=== PATIENT | male | born 1950 | race Caucasian/White ===

== ENCOUNTER 2017-03-28 12:16 | Emergency (ER) | payer OTHER, MEDICARE, BC ==
[2017-03-28 12:24] VITALS: BP 114/66
[2017-03-28] MEDS ORDERED: Diphtheria,Pertussis(Acell),Tetanus Vaccine 0.5 ML Syringe IM ONE (12:40)
--- NOTE | 2017-03-28 12:40 | EDM.PDOC ---
ED HPI GENERAL MEDICAL PROBLEM - General Chief Complaint: Upper Extremity Injury/Pain Stated Complaint: Swollen/Painful Left Hand Time Seen by Provider: 03/28/17 12:19 Source of Information: Reports: Patient History Limitations: Reports: No Limitations - History of Present Illness INITIAL COMMENTS - FREE TEXT/NARRATIVE: This patient is a 66 year old male that presents to the ER. Patient reports that a few days ago he injured his left hand at base of thumb with abrasion working outside. Patent then reports over the past few days he has been moving items and his left wrist began to hurt and swelling near the open wound area. Patent reports he has been treating with vaseline and antibiotic ointment. Patient denies ortiz, dizziness, n, v, d, f, cp, soa, abd pain, rashes. Patient denies history of bleeding in bowel issues. Wrist does not appear septic. No fluctulant. Duration: Day(s): (3) Location: Reports: Upper Extremity, Left Quality: Reports: Ache Severity: Mild Improves with: Reports: Immobilization Worsens with: Reports: Movement Associated Symptoms: Reports: No Other Symptoms. Denies: Diaphoresis, Fever/ Chills, Headaches, Malaise, Nausea/Vomiting, Shortness of Breath, Syncope Left Hand Pain Score (Numeric/FACES): 6 - Related Data Allergies Allergy/AdvReac Type Severity Reaction Status Date / Time No Known Allergies Allergy Verified 03/28/17 12:25 Home Meds: Home Meds Aspirin/Calcium Carbonate/Mag [Aspirin Buffered 325 mg Tab] 325 mg PO DAILY [History] Carvedilol 6.25 mg PO BID 03/28/17 [History] Lisinopril 10 mg PO DAILY 03/28/17 [History] Nitroglycerin 0.4 mg SL ASDIRECTED PRN 03/28/17 [History] atorvaSTATin [Lipitor] 40 mg PO DAILY 03/28/17 [History] traZODone 50 mg PO BEDTIME PRN 03/28/17 [History] Social & Family History - Tobacco Use Smoking Status *Q: Never Smoker - Caffeine Use Caffeine Use: Reports: None - Recreational Drug Use Recreational Drug Use: No Review of Systems - Review of Systems Review Of Systems: See Below Constitutional: Reports: No Symptoms Eyes: Reports: No Symptoms Ears: Reports: No Symptoms Nose: Reports: No Symptoms Mouth/Throat: Reports: No Symptoms Respiratory: Reports: No Symptoms Cardiovascular: Reports: No Symptoms GI/Abdominal: Reports: No Symptoms Genitourinary: Reports: No Symptoms Musculoskeletal: Reports: Joint Pain (left wrist), Joint Swelling (left wrist pain, swelling. ) Skin: Reports: Wound (left hand) Neurological: Reports: No Symptoms Psychiatric: Reports: No Symptoms ED EXAM, GENERAL - Physical Exam Exam: See Below Exam Limited By: No Limitations General Appearance: Alert, WD/WN, No Apparent Distress Nose: Normal Inspection Throat/Mouth: Normal Inspection Head: Atraumatic, Normocephalic Neck: Normal Inspection Respiratory/Chest: No Respiratory Distress, Lungs Clear, Normal Breath Sounds, No Accessory Muscle Use Cardiovascular: Normal Peripheral Pulses, Regular Rate, Rhythm, No Edema, No Gallop, No JVD, No Murmur, No Rub Peripheral Pulses: 2+: Radial (L), Radial (R) Extremities: Joint Swelling (left wrist), Other (left wrist pain, swelling, tenderness along radial side of wrist. Also involves hand at base of left thumb proximal to the wrist with a wound present that is white in color, with mild redness around the site at swelling location or wrist and hand. Not circumferntial. No streaking. Patient motor function intact Pulses +2, cap refill <2 sec, sensory/motor function intact. Neurovascular intact. ). No: Increased Warmth Skin Exam: Warm, Dry, Erythema (mild surrounding wound), Wound/Incision (wound base of thumb as described. [id number]. ) Lymphatic: No Adenopathy Course - Vital Signs Last Recorded V/S: Last Vital Signs Temp 98.1 F 03/28/17 12:19 Pulse 64 03/28/17 12:19 Resp 18 03/28/17 12:19 BP 114/66 03/28/17 12:19 Pulse Ox 97 03/28/17 12:19 - Orders/Labs/Meds Orders: Active Orders 24 hr Category Date Time Status Vaccines to be Administered [RC] PER UNIT ROUTINE Care 03/28/17 12:40 Active Wrist Comp Min 3V Lt [CR] Stat Exams 03/28/17 12:37 Taken Meds: Medications Discontinued Medications Generic Name Dose Route Start Last Admin Trade Name Freq PRN Reason Stop Dose Admin Diphtheria/Tetanus/Acell Pertussis 0.5 ml 03/28/17 12:40 03/28/17 13:00 Adacel IM 03/28/17 12:41 0.5 ml .ONCE ONE Administration Indomethacin 50 mg 03/28/17 12:50 Indocin PO 03/28/17 12:51 ONETIME ONE Trimethoprim/Sulfamethoxazole 1 tab 03/28/17 12:50 03/28/17 13:02 Septra Ds PO 03/28/17 12:51 1 tab ONETIME ONE Administration - Radiology Interpretation Free Text/Narrative:: Left wirst: No fx, no dislcoation. mild soft tissue swelling. OA. Departure - Departure Time of Disposition: 13:05 Disposition: Home, Self-Care 01 Condition: Good Clinical Impression: Wrist pain, left Cellulitis Qualifiers: Site of cellulitis: extremity Site of cellulitis of extremity: upper extremity Laterality: left Qualified Code(s): L03.114 - Cellulitis of left upper limb - Discharge Information Instructions: Cellulitis, Adult, [id number] Forms: ED Department Discharge Additional Instructions: Followup with your primary care provider in the next 2-3 days Return to the ER for worsening of condition or any emergent concerns such as increase in pain, redness, vomiting, fever, or other concerns Bactrim DS 1 pill twice a day for 10 days #20 no refill Indomethacin 50mg 1 pill every 8 hours as needed for pain and swelling #21 no refill - My Orders Last 24 Hours: My Active Orders 03/28/17 12:37 Wrist Comp Min 3V Lt [CR] Stat 03/28/17 12:40 Vaccines to be Administered [RC] PER UNIT ROUTINE - Assessment/Plan Last 24 Hours: My Active Orders 03/28/17 12:37 Wrist Comp Min 3V Lt [CR] Stat 03/28/17 12:40 Vaccines to be Administered [RC] PER UNIT ROUTINE Plan: PLEASE SEE RN NOTE FOR PFSH.
[2017-03-28] MEDS ORDERED: Sulfamethoxazole/Trimethoprim 800-160 MG Tab PO ONE (12:50)
[2017-03-28] MEDS ORDERED: Indomethacin 25 MG Cap PO ONE (12:50)
== END 2017-03-28 13:20 | disposition home or self-care (01) ==
LOC: CC.ED 12:16
DX: L03.012 Cellulitis of left finger (principal); M25.532 Pain in left wrist; Z79.82 Long term (current) use of aspirin; Z79.899 Other long term (current) drug therapy
CPT/HCPCS: 73110; 90471; 90715; 99283; A9270